=== PATIENT | female | born 1990 | race Caucasian/White ===

== ENCOUNTER 2018-01-06 22:28 | Emergency (ER) | payer OTHER ==
[2018-01-07] MEDS ORDERED: Sodium Chloride 0.9% 1,000 ML IV ONE (00:14)
--- NOTE | 2018-01-07 00:17 | C.PDOC ---
History Of Present Illness 27 yo female come in for evaluation of "left sided headache developed since yesterday associated with episode of vertigo this AM that last a few minutes, intermittent dizziness, and Left sided chest tightness developed for past few hours". Pt admits, was evaluated by Ophthalmology today " no abnormal findings" . AT present time, pt still c/o some headache, and chest tightness. Otherwise, pt denies fever, chills, recent illness, visual changes, focal deficits, denies dizziness or vertigo now, neck pain, SOB, dyspnea, palpitation, diaphoresis, abd. pain, N/V/D, back pain, UTI sx. Appears some what anxious. Pt denies contraceptive use, no risk factors for DVT, PE noted. Time Seen by Provider: 01/06/18 23:43 Chief Complaint (Nursing): Chest Pain History Per: Patient Past Medical History Reviewed: Historical Data, Nursing Documentation, Vital Signs Vital Signs: Last Vital Signs Temp 98.1 F 01/06/18 23:16 Pulse 70 01/06/18 23:16 Resp 14 01/06/18 23:16 BP 127/86 01/06/18 23:16 Pulse Ox 100 01/07/18 02:00 - Medical History PMH: No Chronic Diseases Surgical History: Back Surgery Family History: States: No Known Family Hx - Social History Hx Tobacco Use: No Hx Alcohol Use: Yes Hx Substance Use: No - Immunization History Hx Tetanus Toxoid Vaccination: No Hx Influenza Vaccination: No Hx Pneumococcal Vaccination: No Review Of Systems Except As Marked, All Systems Reviewed And Found Negative. Constitutional: Negative for: Fever, Chills Eyes: Negative for: Vision Change ENT: Negative for: Ear Discharge, Nose Discharge, Nose Congestion, Throat Pain, Throat Swelling Cardiovascular: Positive for: Chest Pain. Negative for: Palpitations, Orthopnea , Edema, Light Headedness Respiratory: Negative for: Cough, Shortness of Breath, Wheezing Gastrointestinal: Negative for: Nausea, Vomiting, Abdominal Pain, Diarrhea Genitourinary: Negative for: Dysuria, Incontinence Musculoskeletal: Negative for: Neck Pain, Back Pain Neurological: Positive for: Headache, Dizziness. Negative for: Weakness, Numbness, Altered Mental Status Physical Exam - Physical Exam Appears: Well, Non-toxic, No Acute Distress Skin: Normal Color, Warm, Dry, No Rash Head: Normacephalic Eye(s): bilateral: PERRL Ear(s): Bilateral: Normal Nose: No Flaring, No Discharge Oral Mucosa: Moist, Dry, No Drooling Throat: No Erythema, No Drooling Neck: Normal ROM, Trachea Midline, Supple Cardiovascular: Rhythm Regular, No Murmur, No JVD, Other ((-) carotid bruits B/L ) Respiratory: No Decreased Breath Sounds, No Accessory Muscle Use, No Stridor, No Wheezing Gastrointestinal/Abdominal: Soft, No Tenderness, No Distention, No Guarding Back: No CVA Tenderness Extremity: Normal ROM, No Pedal Edema, No Deformity, No Swelling Neurological/Psych: Oriented x3, Normal Speech, Normal Motor, Normal Sensation, Normal Reflexes ED Course And Treatment - Laboratory Results Result Diagrams: 01/07/18 00:33 01/07/18 00:33 Lab Interpretation: No Acute Changes ECG: Interpreted By Me, Viewed By Me ECG Rhythm: Sinus Rhythm Interpretation Of ECG: SR@97/min, RAD, no acute T wave or ST-T changes. O2 Sat by Pulse Oximetry: 100 Pulse Ox Interpretation: Normal - Radiology CXR: Interpreted by Me, Viewed By Me CXR Interpretation: Yes: No Acute Disease Progress Note: Pt was OBS in ED for 3 hours and reports moderate improvement in sx. On re-eval, pt is afebrile, hemodynamicaly stable. NOn-toxic. Ambulatory in ED with stable gait. PulsEOx 100% RA. ENT: no acute findings. uvula midline , no edmea. Neck: Supple, (-) JVD, (-) carotid bruits B/L. Lungs: CTA B/L, BS equal B/L. Abd: benign, (-) guarding, (-) rebound. back: (-) CVA tenderness. neuorlogicaly intact. Blood work review and appeas without acute abnormlaities. EKG, CXR- normal study. Troponin I, D-Dimer- no acute findings. Pt has clinical findings c/w headache, chest pain.. Pt advised. REf. to follow up with PM in 2 days for re-eval. return to ED if any worsening or new changes. Disposition Counseled Patient/Family Regarding: Studies Performed, Diagnosis, Need For Followup - Disposition Referrals: Sekou Olvera MD [Medical Doctor] - Disposition: HOME/ ROUTINE Disposition Time: 01:57 Condition: STABLE Additional Instructions: Follow up with PMD in 2-3 days for re-evaluation. return to ED if any worsening or new changes. Prescriptions: traMADol [Ultram] 50 mg PO TID #7 tab Instructions: Chest Pain, Headache, Adult (DC) Forms: [employer] (Russian), Work Excuse - Clinical Impression Clinical Impression: Chest pain, Headache
[2018-01-07] MEDS ORDERED: Sodium Chloride 0.9% 1,000 ML ONE (00:32)
[2018-01-07] MEDS ORDERED: DiphenhydrAMINE 50 mg/ml Inj IVP STA (00:36)
[2018-01-07 00:37] LABS: BASO # 0.1 K/uL (0.0-0.2); BASO % 1.1 % (0.0-2.0); EOS # 0.1 K/uL (0.0-0.7); EOS % 1.3 % (0.0-4.0); HEMOGLOBIN 14.7 g/dL (11.0-16.0); LYMPH # 2.9 K/uL (1.0-4.3); LYMPH % 32.1 % (20.0-40.0); MEAN CELL VOLUME 89.1 fL (81.0-99.0); MEAN CORPUSCULAR HEMOGLOBIN 30.9 pg (27.0-31.0); MEAN CORPUSCULAR HGB CONC 34.7 g/dL (33.0-37.0); MEAN PLATELET VOLUME 7.2 fL (7.2-11.7); MONO # 0.7 K/uL (0.0-0.8); MONO % 7.5 % (0.0-10.0); NEUT # 5.3 K/uL (1.8-7.0); NRBC % 0.1 % (0.0-2.0); RBC 4.74 Mil/uL (3.80-5.20); RED CELL DISTRIBUTION WIDTH 14.2 % (11.5-14.5); WHITE BLOOD COUNT 9.1 K/uL (4.8-10.8)
[2018-01-07] MEDS ORDERED: DiphenhydrAMINE 50 mg/ml Inj ONE (00:44)
[2018-01-07 00:47] LABS: HCG,QUALITATIVE URINE NEGATIVE (NEGATIVE); URINE BILIRUBIN NEGATIVE (NEGATIVE); URINE BLOOD NEGATIVE (NEGATIVE); URINE CLARITY Clear (Clear); URINE COLOR Straw (YELLOW); URINE GLUCOSE (UA) NORMAL (Normal)
[2018-01-07 00:48] LABS: SQUAMOUS EPITHIAL 2 /hpf (0-5); URINE BACTERIA RARE (<OCC); URINE LEUKOCYTE ESTERASE NEG Leu/uL (Negative); URINE PROTEIN NEGATIVE (NEGATIVE); URINE UROBILINOGEN NORMAL mg/dL (0.2-1.0)
[2018-01-07 00:49] LABS: D DIMER < 200 ng/mlDDU (0-243); INR 1.1; PARTIAL THROMBOPLASTIN TIME 35 SECONDS (21-34); PROTHROMBIN TIME 11.8 SECONDS (9.7-12.2)
[2018-01-07 00:52] LABS: ALB/GLOB RATIO 1.5 (1.0-2.1); ALBUMIN 4.7 g/dL (3.5-5.0); ALT/SGPT 33 U/L (9-52); AST/SGOT 19 U/L (14-36); BLOOD UREA NITROGEN 12 mg/dL (7-17); CALCIUM 9.7 mg/dl (8.6-10.4); GFR AFRICAN-AMERICAN > 60; GFR NON-AFRICAN AMERICAN > 60
[2018-01-07 02:36] VITALS: BP 128/72; PULSE 82; RESP 20; TEMP 98.4; O2SAT 98
--- NOTE | 2018-01-07 21:12 | RAD ---
Date of service: 01/07/2018 HISTORY: chest pain COMPARISON: No prior. TECHNIQUE: Chest PA and lateral FINDINGS: LUNGS: No active pulmonary disease. PLEURA: No significant pleural effusion identified. No pneumothorax apparent. CARDIOVASCULAR: Normal. OSSEOUS STRUCTURES: Moderate dextroscoliosis is seen at the thoracic spine. VISUALIZED UPPER ABDOMEN: Normal. OTHER FINDINGS: None. IMPRESSION: No active disease.
--- NOTE | 2018-01-10 17:12 | CARD ---
APPROVED REPORT Date of service: 01/06/2018 EKG Measurement Heart [id number] <Conclusion> Baseline artifact Probable sinus rhythm Rightward axis Poor R wave V1 - V2 probably positional Borderline ECG
== END 2018-01-07 02:34 | disposition home or self-care (01) ==
LOC: C.ER 22:28
DX: R51 Headache (principal); R07.9 Chest pain, unspecified
CPT/HCPCS: 71046; 80053; 81001; 84484; 84703; 85025; 85378; 85610; 85730; 93005; 96361; 96374; 96375; 99283; J1200; J1885; J2405; J7030